=== PATIENT | male | born 1975 | race Caucasian/White ===

== ENCOUNTER → 2018-11-29 | Outpatient (CLI) | payer BC ==
--- NOTE | 2018-11-29 15:15 | XR ---
Lumbar spine HISTORY: Bilateral leg pain 3 views of the lumbar spine Lumbar vertebral bodies show preserved height, alignment, and bone mineralization. There is multileve l spondylosis. Some mild loss of disc height L3-4. Sclerosis present in the posterior elements. IMPRESSION: Degenerative disc disease, facet arthropathy.
== END | disposition home or self-care (01) ==
LOC: RADXRMAIN 11:42
PROVIDERS: ATTEND Physician Assistant
DX: M51.36 Other intervertebral disc degeneration, lumbar region (principal); M46.96 Unspecified inflammatory spondylopathy, lumbar region; M79.659 Pain in unspecified thigh
CPT/HCPCS: 72100

== ENCOUNTER → 2018-12-27 | Outpatient (CLI) | payer BC ==
--- NOTE | 2018-12-27 07:39 | US ---
EXAMINATION TYPE: US liver DATE OF EXAM: 12/27/2018 COMPARISON: NONE CLINICAL HISTORY: R74.8 abnormal livels of other serum enzymes. Abd pain and nausea EXAM MEASUREMENTS: Liver Length: 16.8 cm Gallbladder Wall: 0.2 cm CBD: 0.4 cm Right Kidney: 11.9 x 4.6 x 5.4 cm Pancreas: obscured by overlying midline bowel gas Liver: attenuating, increased echogenicity, heterogeneous with 1.5 x 1.0 x 1.9cm hypoechoic area adj acent to gallbladder Gallbladder: multiple echogenic shadowing foci seen with largest measuring 0.7cm, wall measures wnl Evidence for sonographic Clark's sign: no CBD: wnl Right Kidney: 0.9 x 0.9 x 0.9cm cystic area lateral mid pole IMPRESSION: 1. There is increased in attenuation which could been the basis of fatty infiltration or hepatic stea tosis. Focal area of hypoechogenicity measuring 1.5 cm near the gallbladder fossa may represent focal fatty sparing. This could be confirmed with CT scan. 2. Cholelithiasis
== END | disposition home or self-care (01) ==
LOC: RADUSWWP 06:59
PROVIDERS: ATTEND Family Medicine
DX: K80.20 Calculus of gallbladder without cholecystitis without obstruction (principal)
CPT/HCPCS: 76705

== ENCOUNTER → 2019-01-22 | Outpatient (CLI) | payer BC ==
--- NOTE | 2019-01-22 20:28 | CONS ---
CONSULTATION REASON FOR CONSULTATION: Sleep apnea. 43-year-old male patient, works for [employer], coming in to be evaluated for snoring and apneas as reported by his . He is a short sleeper and he averages around 4-6 hours of sleep. He goes to bed around 9 to 10 p.m., wakes up between 3 to 4 am in the morning. He feels tired especially later on during the day. He may take a nap at any time point in time. He has been told to quit breathing by his . No nocturia. No waking up gasping for air. No grinding. No sweating. No problems with memory or concentration. No other complaints otherwise for now. No recent weight gain or weight loss. PAST MEDICAL HISTORY: Negative. SURGICAL HISTORY: Appendectomy. DRUG ALLERGIES: Not known. OUTPATIENT MEDICATIONS: None. SOCIAL HISTORY: Smoker. No history of alcohol. No history of IV drugs. FAMILY HISTORY: Negative for sleep apnea. REVIEW OF SYSTEMS: Fourteen-point review of system was done. Positive findings are mentioned above history of present illness. No recent weight gain. No history of any motor vehicle accident because of feeling drowsy or sleepy. He wakes up probably once in the middle of night to urinate. Weight has been stable. No vivid dreams, no hallucinations. No cataplexy. PHYSICAL EXAMINATION: BP is 108/78, pulse 82, respirations 16, temperature 98.0, saturation 96% on room air. Weight is 186, height is 5 feet 8 inches. Neck size os 16 inches. General appearance: Calm and comfortable. HEENT: Head atraumatic, normocephalic. NECK: Supple. There is macrognathia. No goiter or neck masses. Mallampati class III. LUNGS: Clear to auscultation. HEART: Sounds regular rate and rhythm. Normal S1, S2. No murmurs. ABDOMEN: Soft, nontender. No organomegaly. EXTREMITIES: No edema. No cyanosis or clubbing. NEUROLOGIC: Alert and oriented x3. No focal neurological deficits. PSYCHIATRIC: Negative for anxiety or depression. SKIN: Negative for any wounds or ulceration. IMPRESSION: 1. Snoring. 2. Witnessed apneas. 3. Hypersomnia, [place] score of 13. 4. Micrognathia with Mallampati class 3. PLAN: 1. Screening polysomnogram. 2. Treat according to results of the sleep study. MMODL / IJN: [id number] /
== END | disposition home or self-care (01) ==
LOC: SLEEP 16:31
PROVIDERS: ATTEND Internal Medicine Critical Care Medicine
DX: G47.10 Hypersomnia, unspecified (principal); R06.83 Snoring; R06.81 Apnea, not elsewhere classified; M26.09 Other specified anomalies of jaw size; F17.200 Nicotine dependence, unspecified, uncomplicated
CPT/HCPCS: 99211

== ENCOUNTER → 2019-03-06 | Outpatient (CLI) | payer BC ==
[2019-03-06 12:01] LABS: LDL Cholesterol,Calculated 106.6 mg/dL (0.0-131.0); VLDL Calculation 25.4 mg/dL (5.00-40.00)
== END | disposition home or self-care (01) ==
LOC: LABWHC1 06:44
PROVIDERS: ATTEND Physician Assistant
DX: Z13.1 Encounter for screening for diabetes mellitus (principal); K76.0 Fatty (change of) liver, not elsewhere classified
CPT/HCPCS: 36415; 80061; 82947

== ENCOUNTER → 2019-06-04 | Outpatient (CLI) | payer BC ==
--- NOTE | 2019-06-04 20:06 | PN ---
PROGRESS NOTE Cordell is 44 coming in for a compliancy check regarding his obstructive sleep apnea. The patient saw me in the sleep center. He was diagnosed having severe NEVILLE with an AHI of 81 and he also demonstrated severe nocturnal oxygen desaturation. He was quite somnolent with an [place] score of 15 and he was titrated to a CPAP pressure of 11 cm of water. On today's evaluation, he feels great. He reports marked improvement in his sleep quality. He is waking up refreshed and alert during the day. No episodes of falling asleep during day-to-day activities. Based on the compliance data, the patient is extremely compliant and he is averaging more than 4 hours of CPAP use for more than 95% of the time. His average CPAP use is around 5.8 hours per night. Leak is 22 L/minute and his AHI is down to 1.5. He is using an AirFit N30I nose mask. No recent weight loss or weight gain. No other complaints otherwise for now. REVIEW OF SYSTEMS: Fourteen-point review of system was done. Positive findings are all mentioned above in the history of present illness. PHYSICAL EXAMINATION: BP is 118/70, pulse 68, respirations 14, Washington score is 2 and temperature 98.0. Weight 193, saturation 97% on room air. GENERAL APPEARANCE: Calm, comfortable. Head is atraumatic, normocephalic. NECK: Supple. No JVD. No goiter or neck mass. LUNGS: Clear to auscultation. HEART: Sounds are regular rate and rhythm. Normal S1, S2. No S3. No murmurs. ABDOMEN: Soft, nontender. No organomegaly. EXTREMITIES: No edema. No cyanosis or clubbing. Neurologically the patient is alert and oriented x3. There are no focal neurological deficits. PSYCHIATRIC: Negative for anxiety or depression. IMPRESSION: 1. Severe obstructive sleep apnea, AHI of 81, currently on CPAP pressure of 11 with excellent clinical response and compliance. 2. Nocturnal oxygen desaturation improved. 3. Hypersomnia, improved with an Washington score dropped from 15 down to 2. PLAN: The patient is benefitting. The patient is extremely compliant. Continue CPAP therapy at the same level of pressure. Keep the same mask interface which is an AirFit N30I. Encourage weight loss. Implement good sleep hygiene measures. We will continue to follow. This is successful treatment. See me as needed. Probably in a year's time or so. MMODL / IJN: [id number] /
== END ==
LOC: SLEEP 16:25
PROVIDERS: ATTEND Internal Medicine Critical Care Medicine
DX: G47.33 Obstructive sleep apnea (adult) (pediatric) (principal); R09.02 Hypoxemia; Z99.89 Dependence on other enabling machines and devices

== ENCOUNTER → 2019-07-12 | Outpatient (CLI) | payer BC ==
--- NOTE | 2019-07-12 09:39 | US ---
EXAMINATION TYPE: US kidneys/renal and bladder DATE OF EXAM: 07/12/2019 COMPARISON: Abdominal x-ray 2010 CLINICAL HISTORY: R31.9 Hematuria. Hematuria, patient states no other symptoms EXAM MEASUREMENTS: Right Kidney: 11.3 x 5.1 x 5.2 cm Left Kidney: 11.2 x 6.2 x 4.6 cm Right Kidney: 1.0cm cystic area lateral mid pole Left Kidney: 1.8 x 1.7 x 1.9cm lobulated cyst with thin septa, 0.6cm echogenic focus inferior pole Bladder: wnl Bilateral Jets seen: yes There is no evidence for hydronephrosis at this point in time. No nephrolithiasis is seen. No gunner s are identified. The urinary bladder is anechoic. Bilateral ureteral jets are seen. IMPRESSION: Possible 6 mm nonobstructing left renal calculus mid to lower pole level. No correspondin g abnormality in 2010 x-ray. Consider repeat KUB x-ray to correlate
== END | disposition home or self-care (01) ==
LOC: RADUSWWP 08:36
PROVIDERS: ATTEND Urology
DX: R31.1 Benign essential microscopic hematuria (principal)
CPT/HCPCS: 76770

== ENCOUNTER → 2019-07-20 | Outpatient (CLI) | payer BC ==
--- NOTE | 2019-07-21 21:14 | XR ---
EXAMINATION TYPE: XR KUB DATE OF EXAM: 07/20/2019 CLINICAL DATA: 43-year-old male renal cyst, H COMPARISON: 06/07/2010 FINDINGS: Supine imaging limited for assessment of free air. Nonobstructive bowel gas pattern. No significant stool burden. 4 - 5 calcifications right mid abdomen measuring up to 9 mm. Numerous pelvic phleboliths are noted. IMPRESSION: 4 - 5 right midabdominal calcifications measuring up to 9 mm may represent nonobstructive renal calcu li.
--- NOTE | 2019-07-21 22:00 | CT ---
EXAMINATION TYPE: CT abdomen w con DATE OF EXAM: 07/20/2019 COMPARISON: NONE HISTORY: 43-year-old male Occasional flank pain. Microscopic hematuria TECHNIQUE: Contiguous axial scanning of the abdomen following administration of 100 ml Isovue 300 IV contrast. Delayed images through the kidneys and coronal/sagittal reconstructions performed. CT DLP: 650.6 mGycm Automated exposure control for dose reduction was used. FINDINGS: Heart normal size without pericardial effusion. Lung bases are clear without pleural effusion. Liver enlarged measuring 20.9 cm with low attenuation. Portal venous system is patent. No biliary aida armani dilatation. Gallbladder is mentioned. Phrygian cap is noted. A few gallstones are present measuri ng up to 7 mm. Adrenal glands, spleen, pancreas within normal limits. Exophytic cyst from the medial lower pole left kidney measuring 2.4 cm. Additional scattered hypodens e lesions within the left greater than right measuring 1.3 cm. These are too small for accurate CT ch aracterization and likely represent additional renal cortical cysts. A few borderline enlarged right lower quadrant mesenteric lymph nodes measure up to 7 mm. A few addit ional scattered mesenteric lymph nodes measure up to 9 mm. These are likely reactive/post inflammator y. No nephrolithiasis seen. No dilated small bowel, free fluid, or free air. No significant stool burden. Within the visualized c olon, no pericolonic inflammatory change. Bones: No osseous destructive process. IMPRESSION: 1. EXOPHYTIC 2.4 CM CYST MEDIALLY FROM THE LOWER POLE OF THE LEFT KIDNEY. ADDITIONAL FEW HYPODENSE LE SIONS MEASURING UP TO 1.3 CM ARE TOO SMALL FOR ACCURATE CT CHARACTERIZATION BUT LIKELY REPRESENT SHIRLEY TIONAL SCATTERED RENAL CYSTS. 2. NO NEPHROLITHIASIS OR HYDRONEPHROSIS. 3. GALLSTONES MEASURING UP TO [address] FINDINGS OF ACUTE CHOLECYSTITIS. 4. HEPATIC MEGALY (20.9 CM) WITH SEVERE HEPATIC STEATOSIS. CORRELATE WITH LFT's, LIPID PROFILE, AND P ATIENT RISK FACTORS. 5. NOTE THAT THE PELVIS IS NOT IMAGED ON THIS STUDY.
== END | disposition home or self-care (01) ==
LOC: RADCTMAIN 07:51
PROVIDERS: ATTEND Urology
DX: N28.1 Cyst of kidney, acquired (principal); K80.20 Calculus of gallbladder without cholecystitis without obstruction; K76.0 Fatty (change of) liver, not elsewhere classified; N20.0 Calculus of kidney; Z91.018 Allergy to other foods
CPT/HCPCS: 74018; 74160; Q9967

== ENCOUNTER → 2021-06-29 | Outpatient (CLI) | payer BC ==
--- NOTE | 2021-06-29 16:19 | PN ---
PROGRESS NOTE 45-year-old male patient, works for the [id number], has obstructive sleep apnea with an AHI of 81, coming in for annual check. In fact, this is his 2 years followup. Doing well. No complaints. No weight gain. His machine is functional. He is on CPAP pressure of 11 cm of water. He is using an AirFit N30 I medium-sized nose piece. Based on a 30- day compliancy, the patient has been averaging around 6.1 hours of CPAP use per night and CPAP use for more than 4 hours . Leak is noted of 24 L/minute. AHI is down to 0.5 while on treatment, indicating excellent use and excellent clinical response. He is waking up refreshed and alert during the day. His [place] score is only at 5. No cardiac arrhythmias. No angina. No palpitations. Machine is functional. He needs supplies. PHYSICAL EXAMINATION: VITAL SIGNS: BP is 127/85, pulse 64, respirations 20, temperature 97.5. Saturation 94% on room air. Height is 5 feet 10 inches. Weight is 193, BMI 27.9. [place] score is at 5. GENERAL appearance: Calm, comfortable. HEAD is atraumatic, normocephalic. NECK is supple. No JVD. No goiter or neck mass. Mallampati class 4. LUNGS: Diminished, otherwise clear. HEART sounds are regular rate and rhythm. Normal S1, S2. No S3, S4. No murmurs. ABDOMEN: Soft, nontender. No organomegaly. EXTREMITIES: No edema. No cyanosis or clubbing. NEUROLOGIC: Awake, alert. There is no focal neurological deficits. PSYCHIATRIC: Negative for anxiety or depression. IMPRESSION: 1. Symptomatic obstructive sleep apnea, AHI of 81. Continues to be receiving successful therapy at a pressure of 11 cm of water. His machine is functional and he is compliant. 2. Nocturnal oxygen desaturation recovered with CPAP therapy. 3. Hypersomnia recovered and the patient's [place] score is down to 5. PLAN: 1. Keep same pressure at 11 cm of water. 2. Offer the patient AirFit N30-I medium-sized nose piece. 3. Encourage weight loss. 4. Implement good sleep hygiene measures. 5. See me back in a few years' time in followup. All of the supplies were sent to [facility]. MMODL / IJN: [id number] /
== END ==
LOC: SLEEP 15:26
PROVIDERS: ATTEND Internal Medicine Critical Care Medicine
DX: G47.33 Obstructive sleep apnea (adult) (pediatric) (principal); G47.36 Sleep related hypoventilation in conditions classified elsewhere; Z99.89 Dependence on other enabling machines and devices

== ENCOUNTER 2021-11-04 14:13 | Emergency (ER) | payer BC ==
[2021-11-04 14:22] VITALS: PULSE 63; TEMP 98.3
[2021-11-04 15:05] LABS: Basophils # (A) 0.1 k/uL (0-0.2); Basophils % (A) 1 %; Eosinophils # (A) 0.5 k/uL (0-0.7); Eosinophils % (A) 4 %; HCT 45.5 % (39.0-53.0); HGB 15.9 gm/dL (13.0-17.5); Lymphocytes # (A) 4.2 k/uL (1.0-4.8); Lymphocytes % (A) 37 %; MCH 34.8 pg (25.0-35.0); MCHC 34.9 g/dL (31.0-37.0); MCV 99.7 fL (80.0-100.0); Mean Platelet Volume 6.9; Monocytes # (A) 0.4 k/uL (0-1.0); Monocytes % (A) 3 %; Neutrophils # (A) 5.9 k/uL (1.3-7.7); Neutrophils % (A) 52 %; Platelet Count 291 k/uL (150-450); RBC 4.56 m/uL (4.30-5.90); RDW 12.4 % (11.5-15.5); WBC 11.4 k/uL (3.8-10.6)
[2021-11-04 15:15] LABS: ALT 67 U/L (4-49); AST 37 U/L (17-59); African American GFR (CKD) >90 (>60 ml/min/1.73 sqM); Albumin 4.4 g/dL (3.5-5.0); Alkaline Phosphatase 73 U/L (38-126); Anion Gap 9 mmol/L; Blood Urea Nitrogen 14 mg/dL (9-20); Calcium 9.4 mg/dL (8.4-10.2); Carbon Dioxide 21 mmol/L (22-30); Chloride 107 mmol/L (98-107); Glucose 88 mg/dL (74-99); Non-African American GFR(CKD) >90 (>60 ml/min/1.73 sqM); Potassium 4.2 mmol/L (3.5-5.1); Sodium 137 mmol/L (137-145); Total Bilirubin 0.7 mg/dL (0.2-1.3); Total Protein 7.3 g/dL (6.3-8.2)
[2021-11-04 15:19] LABS: INR 0.9 (<1.2); Partial Thromboplastin Time 24.5 sec (22.0-30.0); Prothrombin Time 10.2 sec (9.0-12.0)
[2021-11-04 15:38] VITALS: BP 134/88; RESP 18
--- NOTE | 2021-11-04 15:56 | XR ---
EXAMINATION TYPE: XR chest 2V DATE OF EXAM: 11/04/2021 COMPARISON: NONE HISTORY: Chest and arm pain. TECHNIQUE: Frontal and lateral views of the chest are obtained. FINDINGS: There is no suspicious focal air space opacity, pleural effusion, or pneumothorax seen. T he cardiac silhouette size is within normal limits. The osseous structures are intact. Overlying E KG leads. IMPRESSION: No acute process.
--- NOTE | 2021-11-04 16:27 | ED ---
General Adult HPI - General Chief complaint: Chest Pain Stated complaint: chest & arm pain Time Seen by Provider: 11/04/21 14:25 Source: patient, RN notes reviewed, old records reviewed Mode of arrival: wheelchair Limitations: no limitations - History of Present Illness Initial comments: 45-year-old male presenting for evaluation of intermittent chest pain over the past 3 weeks. This is been left-sided upper chest pain. No associated vomiting or diaphoresis. No previous history of CAD. No associated dyspnea. No cough. No abdominal pain. No fever. Patient is otherwise healthy. He has been under some increased stress at work. He had contacted his primary care physician who recommended the patient presented to the emergency department for evaluation. - Related Data Home Medications Medication Instructions Recorded Confirmed No Known Home Medications 11/04/21 11/04/21 Allergies Allergy/AdvReac Type Severity Reaction Status Date / Time No Known Allergies Allergy Verified 11/04/21 16:09 Review of Systems ROS Statement: Those systems with pertinent positive or pertinent negative responses have been documented in the HPI. ROS Other: All systems not noted in ROS Statement are negative. Past Medical History Past Medical History: No Reported History History of Any Multi-Drug Resistant Organisms: None Reported Past Surgical History: Appendectomy Past Psychological History: ADD/ADHD Smoking Status: Current every day smoker Past Alcohol Use History: Rare Past Drug Use History: Marijuana General Exam Limitations: no limitations General appearance: alert, in no apparent distress Head exam: Present: atraumatic, normocephalic Eye exam: Present: normal appearance, PERRL ENT exam: Present: normal exam Neck exam: Present: normal inspection. Absent: tenderness, meningismus Respiratory exam: Present: normal lung sounds bilaterally. Absent: respiratory distress, wheezes Cardiovascular Exam: Present: regular rate, normal rhythm GI/Abdominal exam: Present: soft. Absent: distended, tenderness Extremities exam: Present: normal inspection, normal capillary refill. Absent: pedal edema Neurological exam: Present: alert, oriented X3, CN II-XII intact. Absent: motor sensory deficit Psychiatric exam: Present: normal affect, normal mood Skin exam: Present: warm, dry, intact. Absent: cyanosis, diaphoretic Course Vital Signs 11/04/21 11/04/21 14:18 15:31 Temperature 98.3 F Pulse Rate 63 63 Pulse Rate [ 64 Program Rep ] Respiratory 20 18 Rate Blood Pressure 127/85 134/88 O2 Sat by Pulse 97 97 Oximetry EKG Findings - EKG Comments: EKG Findings:: EKG: Sinus bradycardia rate of 56, DE interval 149, QRS duration 93, QTC 395, no ST segment elevation T waves are upright. Medical Decision Making - Medical Decision Making 45-year-old male with chest pain over the past 3 weeks. Pain is atypical. No associated typical features. No previous history of CAD. EKG is sinus rhythm without ST segment elevation. Chest x-ray is clear. He has normal CBC, normal CMP, negative d-dimer, negative troponin. I did offer observation for further cardiac testing. Patient declined states he has good follow-up with his PCP who had recommended outpatient stress testing if patient were to be released from the emergency department. I am agreeable with this plan at this time as patient has agreed to strict return parameters. - Lab Data Result diagrams: 11/04/21 14:57 11/04/21 14:57 Lab Results 11/04/21 11/04/21 11/04/21 Range/Units 14:57 14:57 14:57 WBC 11.4 H (3.8-10.6) k/uL RBC 4.56 (4.30-5.90) m/uL Hgb 15.9 (13.0-17.5) gm/dL Hct 45.5 (39.0-53.0) % MCV 99.7 (80.0-100.0) fL MCH 34.8 (25.0-35.0) pg MCHC 34.9 (31.0-37.0) g/dL RDW 12.4 (11.5-15.5) % Plt Count 291 (150-450) k/uL MPV 6.9 Neutrophils % 52 % Lymphocytes % 37 % Monocytes % 3 % Eosinophils % 4 % Basophils % 1 % Neutrophils # 5.9 (1.3-7.7) k/uL Lymphocytes # 4.2 (1.0-4.8) k/uL Monocytes # 0.4 (0-1.0) k/uL Eosinophils # 0.5 (0-0.7) k/uL Basophils # 0.1 (0-0.2) k/uL PT 10.2 (9.0-12.0) sec INR 0.9 (<1.2) APTT 24.5 (22.0-30.0) sec D-Dimer 0.26 (<0.60) mg/L FEU Sodium 137 (137-145) mmol/L Potassium 4.2 (3.5-5.1) mmol/L Chloride 107 (98-107) mmol/L Carbon Dioxide 21 L (22-30) mmol/L Anion Gap 9 mmol/L BUN 14 (9-20) mg/dL Creatinine 0.93 (0.66-1.25) mg/dL Est GFR (CKD-EPI)AfAm >90 (>60 ml/min/1.73 sqM) Est GFR (CKD-EPI)NonAf >90 (>60 ml/min/1.73 sqM) Glucose 88 (74-99) mg/dL Calcium 9.4 (8.4-10.2) mg/dL Magnesium 2.0 (1.6-2.3) mg/dL Total Bilirubin 0.7 (0.2-1.3) mg/dL AST 37 (17-59) U/L ALT 67 H (4-49) U/L Alkaline Phosphatase 73 (38-126) U/L Troponin I (0.000-0.034) ng/mL Total Protein 7.3 (6.3-8.2) g/dL Albumin 4.4 (3.5-5.0) g/dL 11/04/21 Range/Units 14:57 WBC (3.8-10.6) k/uL RBC (4.30-5.90) m/uL Hgb (13.0-17.5) gm/dL Hct (39.0-53.0) % MCV (80.0-100.0) fL MCH (25.0-35.0) pg MCHC (31.0-37.0) g/dL RDW (11.5-15.5) % Plt Count (150-450) k/uL MPV Neutrophils % % Lymphocytes % % Monocytes % % Eosinophils % % Basophils % % Neutrophils # (1.3-7.7) k/uL Lymphocytes # (1.0-4.8) k/uL Monocytes # (0-1.0) k/uL Eosinophils # (0-0.7) k/uL Basophils # (0-0.2) k/uL PT (9.0-12.0) sec INR (<1.2) APTT (22.0-30.0) sec D-Dimer (<0.60) mg/L FEU Sodium (137-145) mmol/L Potassium (3.5-5.1) mmol/L Chloride (98-107) mmol/L Carbon Dioxide (22-30) mmol/L Anion Gap mmol/L BUN (9-20) mg/dL Creatinine (0.66-1.25) mg/dL Est GFR (CKD-EPI)AfAm (>60 ml/min/1.73 sqM) Est GFR (CKD-EPI)NonAf (>60 ml/min/1.73 sqM) Glucose (74-99) mg/dL Calcium (8.4-10.2) mg/dL Magnesium (1.6-2.3) mg/dL Total Bilirubin (0.2-1.3) mg/dL AST (17-59) U/L ALT (4-49) U/L Alkaline Phosphatase (38-126) U/L Troponin I <0.012 (0.000-0.034) ng/mL Total Protein (6.3-8.2) g/dL Albumin (3.5-5.0) g/dL Disposition Clinical Impression: Chest pain Disposition: HOME SELF-CARE Condition: Good Instructions (If sedation given, give patient instructions): Chest Pain (ED) Is patient prescribed a controlled substance at d/c from ED?: No Referrals: Marino Barbosa MD [Primary Care Provider] - 1-2 days Time of Disposition: 16:27
== END 2021-11-04 19:09 | disposition home or self-care (01) ==
LOC: EC 14:13
DX: R07.89 Other chest pain (principal); F17.200 Nicotine dependence, unspecified, uncomplicated; F12.90 Cannabis use, unspecified, uncomplicated; Z90.49 Acquired absence of other specified parts of digestive tract; F90.9 Attention-deficit hyperactivity disorder, unspecified type
CPT/HCPCS: 36415; 71046; 80053; 83735; 84484; 85025; 85379; 85610; 85730; 93005; 99285

== ENCOUNTER → 2021-12-15 | Outpatient (CLI) | payer BC ==
--- NOTE | 2021-12-16 09:27 | ECHOS ---
STRESS ECHOCARDIOGRAM REFERRING: Dr. Barbosa. INDICATION: Chest pain. BASELINE HEART RATE: 65 BASELINE BLOOD PRESSURE: 124/73 MAXIMUM HEART RATE: 153 MAXIMUM BLOOD PRESSURE: 199/88 85% MPHR: 149 100% MPHR: 175 METS: 9.1 MAXIMUM STAGE REACHED: 4 TOTAL EXERCISE TIME: 9 min 21 sec STRESS DATA: Heart rate 69 pressure 124/73 mmHg. Baseline EKG showed sinus mechanism. The patient exercised on the treadmill according to Noel protocol for a total of 9 minutes and achieved 9.1 METS. Max heart rate was 153 which is about 87% of maximum predicted heart rate and maximum blood pressure was 199/88 mmHg. Clinically, the patient did not have any symptoms. The EKG did not show any significant ST or T-wave abnormalities concerning for ischemia. On echocardiogram images: An echo from parasternal long axis view, parasternal short axis view, apical 4 chamber, apical 2 chambers were obtained as the baseline images at the peak of the heart rate as well as on recovery and the echocardiogram images showed good augmentation in the left ventricular systolic function without any evidence of wall motion abnormalities concerning for ischemia. CONCLUSION: 1. Excellent exercise tolerance. 2. Normal EKG in response to exercise. 3. Normal echocardiogram in response to exercise. 4. Essentially normal stress echocardiogram for the patient. MMODL / IJN: [id number] /
== END | disposition home or self-care (01) ==
LOC: RADNMMAIN 09:12
PROVIDERS: ATTEND Internal Medicine
DX: R07.9 Chest pain, unspecified (principal)
CPT/HCPCS: 93351

== ENCOUNTER → 2022-01-12 | Outpatient (CLI) | payer BC ==
--- NOTE | 2022-01-12 08:49 | US ---
EXAMINATION TYPE: US abdomen comp/pelvis limited DATE OF EXAM: 01/12/2022 COMPARISON: CT abdomen July 20, 2019 CLINICAL HISTORY: R79.89 OTHER SPECIFIED ABNORMAL FINDINGS OF BLOOD. Patient states no symptoms EXAM MEASUREMENTS: Liver Length: 16.0 cm Gallbladder Wall: 0.2 cm CBD: 0.4 cm Spleen: 12.1 cm Right Kidney: 12.3 x 4.9 x 5.6 cm Left Kidney: 12.5 x 6.0 x 6.1 cm Pancreas: obscured by overlying midline bowel gas Liver: attenuating, increased echogenicity, heterogeneous, 1.9cm hypoechoic area adjacent to gallbla dder, probable focal sparing Gallbladder: cholelithiasis CBD: visualized portions wnl, limited by overlying bowel gas Spleen: visualized portions wnl, limited by overlying bowel gas Right Kidney: wnl Left Kidney: 1.7cm cystic area inferior pole, 0.6cm echogenic focus inferior pole Upper IVC: wnl Abd Aorta: proximal portion obscured by overlying midline bowel gas, mid and distal portions wnl Bladder: wnl Bilateral Jets Seen yes No aneurysmal change and visualized mid and distal abdominal aorta. Suboptimal evaluation of pancreas due to overlying bowel gas. Liver redemonstrated heterogeneously hyperechoic consistent with diffuse fatty infiltration. No adjacent ascites. Evaluation for focal masses suboptimal due to the heterogen eity. No right-sided hydronephrosis. Gallbladder is contracted with intraluminal mobile shadowing gal lstones. No biliary dilatation. No left-sided hydronephrosis. Technologist marked a 1.7 cm round simp le appearing thin-walled cyst in left kidney with some dependent milk of calcium. Spleen is normal in size. Bladder not greatly distended but no abnormal intraluminal mass. Bilateral distal ureter jets are seen. IMPRESSION: Heterogeneous hyperechoic appearance of liver consistent with diffuse fatty infiltration correlates with 2019 CT.
== END | disposition home or self-care (01) ==
LOC: RADUSWWP 07:31
PROVIDERS: ATTEND Internal Medicine
DX: K76.0 Fatty (change of) liver, not elsewhere classified (principal)
CPT/HCPCS: 76700; 76857

== ENCOUNTER → 2022-01-12 | Outpatient (CLI) | payer BC | END | disposition home or self-care (01) | LOC: RADUSWWP 07:30 | PROVIDERS: ATTEND Urology | DX: Z53.9 Procedure and treatment not carried out, unspecified reason (principal) ==

== ENCOUNTER → 2023-01-09 | Outpatient (CLI) | payer BC ==
--- NOTE | 2023-01-10 07:10 | US ---
EXAMINATION TYPE: US venous doppler duplex UE RT DATE OF EXAM: 01/09/2023 COMPARISON: NONE CLINICAL INDICATION: Male, 47 years old with history of M79.629 PAIN UPPER ARM; Right arm pain x 2 we eks following coughing fit where patient states he heard something pop SIDE PERFORMED: Right Right Arm: Appears negative for DVT IMPRESSION: No evidence for DVT at this time.
== END | disposition home or self-care (01) ==
LOC: RADUSWWP 16:35
PROVIDERS: ATTEND Family Medicine
DX: M79.621 Pain in right upper arm (principal)